=== PATIENT | male | born 1945 | race Caucasian/White ===

== ENCOUNTER 2016-03-28 14:21 | Emergency (ER) | payer MEDICARE ==
[~2016-03-28] VITALS: Ht 172.7 cm; Wt 65.9 kg
[2016-03-28 14:34] VITALS: BP 149/82; PULSE 90; RESP 21; O2SAT 98
--- NOTE | 2016-03-28 15:17 | ED.REPORT ---
HPI-General Illness Date of Service Mar 28, 2016 ED Provider: Octaviano Cortes MD 70 year old male with a history of alcohol abuse and Hepatitis C presents to the ER via EMS complaining of vertigo symptoms and vomiting onset while walking through a parking lot at the grocery store just prior to arrival. Shortly after onset he called EMS and was able to lower himself to the ground while he waited for medics to arrive. Symptoms initially lasted about 20 minutes, then returned en route. Patient denies LOC, palpitations, dyspnea, chest pain, focal weakness , dysarthria, or history of similar. Last drink was two days ago. Typically he drinks 3-4 beers daily, and "a shot or two of tequila". Nursing Notes Stated Complaint: DIZZINESS Chief Complaint: General Complaint Nursing Notes Reviewed: Yes Allergies: Coded Allergies: No Known Allergies (Unverified , 08/06/15) General Time Seen by MD: 15:15 Chief Complaint Dizziness Hx Obtained From: Patient Arrived By: Ambulance Sudden in Onset?: Yes Onset Occurred: Just prior to arrival Symptom Duration: Intermittent Associated with: Reports: Nausea, Vomiting, Denies: Chest pain, Loss of consciousness, Numb extremities, Shortness of breath, Weak extremity, Weakness Similar Sx Previous: No Past Medical History Past Medical History Suicidal ideations Alcohol abuse Hep C Past Surgical History None reported Smoking History Current Every Day Smoker Social History Alcohol Use: 3-5 per day Drug Use: THC Ambulatory Status Independent Review of Systems Full Review of Systems Constitutional: Denies: Chills, Fever Respiratory: Denies: Dyspnea on exertion, Non-productive cough, Shortness of breath Cardiovascular: Denies: Chest pain, Palpitations GI: Reports: Nausea, Vomiting Neurologic: Reports: Dizziness, Problem walking, Spinning sensation, Denies: Change LOC, Confusion, Focal weakness, Headache, Lightheaded, Numbness, Slurred speech, Syncope, Unable to speak, Vision change, Weakness Complete sys rev & neg: except as marked. Physical Exam Vital Signs Vital Signs Date Time Temp Pulse Resp B/P Pulse Ox O2 Delivery O2 Flow Rate FiO2 03/28/16 17:16 37.9 91 145/79 98 Room Air 03/28/16 14:34 36.8 90 21 149/82 98 Room Air Initial VS: Reviewed Head / Eyes: Atraumatic, Normocephalic Neck: Supple, Non-tender, Full range of motion Abdomen / GI: Soft, Non-tender, No guarding, No rebound, No distention Extremities: Vascular intact, Neuro intact, No swelling, No tenderness Skin: Warm, Dry, No cyanosis Psychiatric: Mood/affect normal, Behavior normal, Normal thought content General/Constitutional: Awake, Alert, No acute distress, Well developed, Cooperative Respiratory / Chest: Breath sounds NL, No respiratory distress, No rales, No rhonchi, No wheezing Cardiovascular: Heart rate NL, Regular rhythm, Heart sounds NL, No gallop, No murmurs, No rubs, Cap refill not delayed, Peripheral circulation NL Neurologic: Oriented X3, Speech NL, No motor deficits, No sensory deficits, Gait NL Romberg's test negative. Wide shuffling gait. Able to walk in straight line. Able to balance with his eyes closed. Interpretation & Diagnostics Lab Results Interpretation Result Diagram: 03/28/16 1525 03/28/16 1525 Test 03/28/16 15:25 03/28/16 16:23 White Blood Count 5.7th/mm3 (3.8-10.1) Red Blood Count 4.10mil/mm3 (4.40-5.80) Hemoglobin 14.2g/dL (13.8-17.2) Hematocrit 40.5% (41.0-50.0) Mean Corpuscular Volume 98.8fL (81-100) Mean Corpuscular Hemoglobin 34.6pg (27.0-35.0) Mean Corpuscular Hemoglobin Concent 35.1% (32.0-37.0) Red Cell Distribution Width 12.1% (12.3-15.4) Platelet Count 193bil/L (150-400) Neutrophils (%) (Auto) 82.9% (40-74) Lymphocytes (%) (Auto) 6.5% (14-46) Monocytes (%) (Auto) 10.0% (4-12) Eosinophils (%) (Auto) 0% (0-5) Basophils (%) (Auto) 0.3% (0-3) Sodium Level 136mEq/L (134-144) Potassium Level 4.5mEq/L (3.5-5.2) Chloride Level 98mEq/L (97-108) Carbon Dioxide Level 22mmol/L (18-29) Blood Urea Nitrogen 12mg/dL (8-27) Creatinine 0.60mg/dL (0.76-1.27) Estimat Glomerular Filtration Rate 142mL/min (>59) Glucose Level 186mg/dL (60-99) Calcium Level 8.6mg/dL (8.5-10.1) Magnesium Level 1.6mg/dL (1.6-2.6) Total Bilirubin 1.1mg/dL (0.0-1.2) Aspartate Amino Transf (AST/SGOT) 83U/L (0-50) Alanine Aminotransferase (ALT/SGPT) 57U/L (0-44) Alkaline Phosphatase 91U/L (25-160) Troponin T < 0.010ug/L (0.0-0.011) Total Protein 6.1g/dL (6.4-8.4) Albumin 3.6g/dL (3.4-5.0) Hold Johnson Top Tube Received (Received) Urine Color Yellow (YELLOW) Urine Appearance Clear (CLEAR,HAZY) Urine pH 7.0 (5.0-8.0) Urine Specific Dolores 1.010 (1.003-1.035) Urine Protein Negativemg/dL (NEG,TRACE) Urine Glucose (UA) Negativemg/dL (NEGATIVE) Urine Ketones 15mg/dL (NEGATIVE) Urine Occult Blood Negative (NEGATIVE) Urine Nitrite Negative (NEGATIVE) Urine Bilirubin Negative (NEGATIVE) Urine Urobilinogen Normalmg/dL (NORMAL) Urine Leukocyte Esterase Negative (NEGATIVE) Urine RBC 0-2/hpf (0-2) Urine WBC 0-5/hpf (0-5) Urine Epithelial Cells Occasional/hpf (NONE-MOD) Urine Crystals None seen (NONE SEEN) Urine Bacteria None/hpf (NONE-FEW) Urine Hyaline Casts None/lpf (NONE) Urine Granular Casts None seen (NONE SEEN) Urine Waxy Casts None seen (NONE SEEN) Urine Red Blood Cell Casts None seen (NONE SEEN) Urine White Blood Cell Casts None seen (NONE SEEN) Urine Mucus None seen (None Seen) Urine Trichomonas None seen (NONE SEEN) Urine Yeast None (NONE SEEN) Urinalysis Comment None Urine Culture Reflexed Not indicated ECG Interpretation ECG Interpretation: Sinus rhythm, rate 89 Normal axis Normal intervals No ST segment changes T wave inversion in lead v2 No prior ECG available Time: 15:19 Interpreted by: ED physician Re-Eval/Medical Decision Med Decision/Clinical Course Patient is a 70-year-old male with a history of heavy alcohol abuse (initially reports 4 drinks per day though later admits to much more) who presents to emergency department after an episode of vomiting and vertiginous dizziness which is now resolved. Here in the emergency department the patient appears chronically malnourished though has a completely nonfocal neurologic examination except for somewhat wide based gait. Romberg is negative and there is nothing lateralizing. He is afebrile stable vital signs and examination as above. EKG was obtained and interpreted by myself as documented above. CBC was unremarkable. CMP was notable only for mildly elevated transaminases which is not particularly surprising giving his known alcohol abuse. CT scan of the head demonstrated no acute intracranial process. Patient was treated with IV fluids and banana bag. He reported symptomatic improvement. At this time, I see no evidence of acute lateralizing neurologic deficit or ongoing vertiginous symptoms to suggest acute stroke. I suspect that alcohol intoxication may have been a component of his presentation today that he later states that he is trying to stop drinking for the last day or 2. He does not appear to be in any florid alcohol withdrawal. Given his chronic/insidious gait issues I suspect he may be developing some degree of Wernike encephalopathy as he admits to very poor diet. I offered the patient admission for treatment of any alcohol withdrawal and ongoing IV thiamine. The patient declined admission stating that his dog was at home and he needed to leave. He states that he is not sure if he wants to stop drinking. He demonstrates decisional capacity and I advised him of the risks associated with stopping drinking cold turkey, alcohol withdrawal and Warneke encephalopathy. At this time he has insight into his condition. 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 Follow-up and return precautions were reviewed in detail and he was discharged in stable condition. Source of Hx: Old records Time of Eval: 17:19 Re-Evaluation/Progress Note: Discussed treatment options with patient and plan to discharge after IV fluids. Verbal discharge instructions given. Patient is amenable to the plan. Return precautions given. All other questions addressed. Counseled Regarding: Diagnosis, Lab results, Need for follow-up, When/why to return to ED Discharge & Departure Primary Impression: Alcohol abuse Additional Impressions: Wernicke encephalopathy Unsteady gait Vomiting Vomiting type: unspecified Vomiting Intractability: unspecified Nausea presence: unspecified Qualified Code: R11.10 - Vomiting, unspecified Malnutrition Dehydration Elevated transaminase level Disposition: Home Discharge Condition All VS Reviewed: Yes Condition: Stable Patient Instructions: Abuse of Alcohol (DC), Alcohol Intoxication (DC), Alcohol Withdrawal (DC) Additional Instructions: Thank you for seeking care at emergency room. It is difficult for us to make definitive diagnoses in the ED but we believe that you are experiencing nutritional deficiencies related to drinking. Our primary goal today in the ED was to evaluate you for any life-threatening conditions. Your evaluation was reassuring. You should follow-up with your primary doctor this week. Our social workers are here to help, we encourage you to follow up with them here in the ER if you have the desire to quit drinking. You should return to the ED immediately if you develop worsening dizziness, numbness/tingling, difficulty walking, confusion, vomiting, diarrhea, or any other concerning signs or symptoms. Thank you for letting us partake in your care today. Referrals: YANNICK CURRANLUTHER, [facility] (PCP) Alcoholics Anonymous ([facility]) Braeden Attestation Portions of this note were transcribed by Jean-Pierre Maxwell. I, Dr. Cortes, personally performed the history, physical exam and medical decision-making; I reviewed and confirmed the accuracy of the information in the transcribed note. Signed by: Braeden Green, 03/28/2016 and 18:25 copies to: [facility] ; Alcohol[facility] ([place]) Octaviano Cortes MD Mar 28, 2016 15:16 JEAN-PIERRE MAXWELL Mar 28, 2016 15:36
[2016-03-28 15:38] LABS: BASOPHILS % (AUTO) 0.3 % (0-3); EOSINOPHILS % (AUTO) 0 % (0-5); Mean Corpuscular Hemoglobin 34.6 pg (27.0-35.0); Mean Corpuscular Volume 98.8 fL (81-100); NEUTROPHILS % (AUTO) 82.9 % (40-74); Platelet Count 193 bil/L (150-400)
[2016-03-28 16:07] LABS: TROPONIN T < 0.010 ug/L (0.0-0.011)
[2016-03-28 16:16] LABS: Magnesium 1.6 mg/dL (1.6-2.6)
[2016-03-28] MEDS ORDERED: Multivitamin w/Vit K Inj 10 ML, Thiamine Inj 100 MG, Folic Acid Inj 1 MG, Magnesium Sul... IV ONE ×5 (17:03)
[2016-03-28 17:09] LABS: APPEARANCE,URINE CLEAR (CLEAR,HAZY); COLOR,URINE YELLOW (YELLOW)
[2016-03-28 17:10] LABS: OCCULT BLOOD,URINE NEGATIVE (NEGATIVE); UROBILINOGEN,URINE NORMAL (NORMAL)
[2016-03-28] MEDS ORDERED: Ondansetron 2 mg/mL 2 mL Inj IVPUSH PRN (17:15)
[2016-03-28 17:16] VITALS: BP 145/79; PULSE 91; O2SAT 98
--- NOTE | 2016-03-28 18:40 | DRSVH ---
PROCEDURE: CT BRAIN WITHOUT CONTRAST ([id number]) INDICATIONS: Altered mental status TECHNIQUE: Noncontrast 4.5 mm thick angled axial sections acquired from the foramen magnum to the vertex, with c oronal reformats. COMPARISON: None. FINDINGS: Image quality: Excellent. CSF spaces: Basal cisterns are patent. No extra-axial fluid collections. The ventricles are symmet sruthi in size and shape. There is mild cerebral volume loss, with resultant ventricular and sulcal pro minence. Brain: No intracranial hemorrhage, mass, or mass effect. There are subcortical, periventricular and deep white matter hypodensities consistent with mild chronic small vessel ischemic changes. There i s intracranial internal carotid artery atherosclerosis. Skull and face: Calvarium and visualized facial bones are intact, without suspicious lesions. Sinuses: Visualized sinuses and mastoids are clear. IMPRESSION: 1. No acute intracranial abnormality. 2. Mild cerebral volume loss and chronic white matter small vessel ischemic changes. Dictated by: Migue Piedra M.D. on 03/28/2016 at 18:36 Approved by: Migue Piedra M.D. on 03/28/2016 at 18:38
[2016-03-28 19:38] VITALS: BP 152/78; PULSE 83; RESP 22; O2SAT 97
== END 2016-03-28 19:52 | disposition home or self-care (01) ==
LOC: SED 14:21
DX: F10.10 Alcohol abuse, uncomplicated (principal); E51.2 Wernicke's encephalopathy; E86.0 Dehydration; E46 Unspecified protein-calorie malnutrition; R26.81 Unsteadiness on feet; R11.10 Vomiting, unspecified; R74.0 Nonspecific elevation of levels of transaminase and lactic acid dehydrogenase [LDH]; F17.200 Nicotine dependence, unspecified, uncomplicated; Z86.19 Personal history of other infectious and parasitic diseases
CPT/HCPCS: 36415; 70450; 80053; 81000; 83735; 84484; 85025; 93005; 96374; 99285; J3475; J7030